=== PATIENT | male | born 1970 | race Caucasian/White ===

== ENCOUNTER 2017-11-05 07:10 | Day surgery (SDC) | payer BC ==
[2017-11-04 11:52] LABS: HEMATOCRIT 45.8 % (42.0-54.0); HEMOGLOBIN 16.2 g/dL (13.5-17.5); MCH 31.2 pg (26.0-34.0); MCHC 35.4 g/dL (31.0-37.0); MCV 88.2 fL (80.0-100.0); MEAN PLATELET VOLUME 11.6 fL (7.4-10.4); RBC 5.19 10x6/uL (4.20-6.10); RDW 12.2 % (11.5-14.5); WBC 9.2 10x3/uL (4.8-10.8)
[~2017-11-05] VITALS: Ht 182.9 cm; Wt 132.9 kg
--- NOTE | ~2017-11-05 | OP ---
PATIENT NAME: SESAR JEAN MEDICAL RECORD: [id number] :66 LOCATION:D.OPS ADMISSION DATE: SURGEON: DEREK CESAR MD DATE OF OPERATION: 11/05/2017 SURGEON: Derek Cesar MD ANESTHESIA: MAC by German Luna CRNA. DIAGNOSIS: Elevated PSA of 3.75. PROCEDURE: Transrectal ultrasound and prostate biopsy. FINDINGS: 58 gram prostate with intraprostatic stones. BLOOD LOSS: None. CLINICAL HISTORY: This is a 47-year-old male, who has a PSA of 3.75 this year. Last year, the PSA was 2. Thus, he has had a sudden rise in his PSA level. Also, he has a positive family history of prostate cancer with his father and his grandfather having had prostate cancer. He comes today to have a prostate biopsy performed. He is not allergic to any medications. We gave him Ancef contact lens blocker to the OR. DESCRIPTION OF PROCEDURE: The patient was given IV sedation. He was placed in the dorsal lithotomy position. The transrectal ultrasound probe was placed and we obtained prostate size measurements of 58 grams. He has intraprostatic stones, but no hypoechoic areas were seen. Sextant biopsies were then obtained with at least 3 cores from each sextant. Once all the biopsies were obtained, we then terminated the procedure. The patient was brought back to the preoperative holding area. I will see him next week in followup to review the pathology with him. TRANSINT:[id number] Voice Confirmation ID: [id number] DOCUMENT ID: [id number] DEREK CESAR MD at 1532 CC: [id number] DICTATION DATE: 11/05/17 1121 LAMP ASSEMBLER: 11/05/17 1227 [facility] 11/05/17 [id number] [place] [address]
[~2017-11-05 07:10] MED LIST: LISINOPRIL10 MG PO; SMZ/TMP DS TAB 800
[2017-11-05 09:23] VITALS: BP 131/72; BMI 39.8
[2017-11-05 09:26] VITALS: BP 131/72; Ht 182.9 cm; Wt 132.9 kg
== END 2017-11-05 12:30 | disposition home or self-care (01) ==
LOC: D.OPS 07:10 → D.PAN 09:55 → D.OPS 09:55
PROVIDERS: Anesthesiology
DX: R97.20 Elevated prostate specific antigen [PSA] (principal); Z80.42 Family history of malignant neoplasm of prostate